=== PATIENT | male | born 1980 | race Caucasian/White ===

== ENCOUNTER → 2020-11-30 | Outpatient (CLI) | payer BC ==
--- NOTE | 2020-11-30 09:11 | US ---
EXAMINATION TYPE: US liver DATE OF EXAM: 11/30/2020 COMPARISON: NONE CLINICAL HISTORY: 40-year-old male R74.01 Elevated liver enzymes. No pain. Abnormal labs TECHNIQUE: Multiple sonographic images of the right upper quadrant are obtained. FINDINGS: EXAM MEASUREMENTS: Liver Length: 15.9 cm Gallbladder Wall: 0.2 cm Right Kidney: 11.1 x 5.8 x 5.7 cm Pancreas: Obscured by bowel gas Liver: Scanned through ribs due to overlying bowel gas. Limited intercostal views shows marked incre ased echogenicity. Gallbladder: wnl Evidence for sonographic Asencio's sign: neg CBD: Obscured by overlying bowel gas, unable to assess Right Kidney: No hydronephrosis. IMPRESSION: 1. Limited intercostal views of the liver show moderate to severe hepatic steatosis. Correlate with L FTs, liver profile, and patient risk factors. 2. No gallstones or imaging findings of acute cholecystitis. 3. Both bile duct and pancreas are obscured by bowel gas and could not be assessed.
== END | disposition home or self-care (01) ==
LOC: RADUSWWP 07:05
PROVIDERS: ATTEND Family Medicine
DX: K76.0 Fatty (change of) liver, not elsewhere classified (principal)
CPT/HCPCS: 76705

== ENCOUNTER → 2023-07-10 | Outpatient (CLI) | payer BC ==
--- NOTE | 2023-07-11 12:52 | US ---
EXAMINATION TYPE: US groin LT DATE OF EXAM: 07/10/2023 COMPARISON: NONE CLINICAL INDICATION: Male, 43 years old with history of R10.9 abd pain; Left groin pain extending to scrotum. TECHNIQUE: Targeted ultrasound along the left inguinal region. FINDINGS: Train Control Technician notes: Left groin scanned. Possible bowel seen within inguinal canal. Valsal va performed with movement visualized. IMPRESSION: Movement noted along the left inguinal region with Valsalva. Correlate for underlying inguinal hernia . If indicated, CT without and with Valsalva may be helpful to confirm.
--- NOTE | 2023-07-11 12:54 | US ---
EXAMINATION TYPE: US groin RT DATE OF EXAM: 07/10/2023 COMPARISON: NONE CLINICAL INDICATION: Male, 43 years old with history of R10.9 unspec abd pain; Hx right inguinal fareed ia with repair. No symptoms. TECHNIQUE: Targeted ultrasound right inguinal region. FINDINGS: Tubular Riveter notes: Right groin scanned. Echogenic area seen with shadowing at inguinal ca nal = 1.3 cm IMPRESSION: A 1.3 cm focus of shadowing at the right inguinal region probably corresponds to prior surgery. No ab normal movement of tissue or evident bulging to clearly indicate an inguinal hernia on the provided i mages.
--- NOTE | 2023-07-11 12:55 | US ---
EXAMINATION TYPE: US scrotum with doppler. TECHNIQUE: Grayscale and color Doppler Duplex imaging performed of the scrotum. DATE OF EXAM: 07/10/2023 COMPARISON: NONE CLINICAL INDICATION: Male, 43 years old with history of R10.9 UNSPECIFIED ABDOMINAL PAIN; Left inguin al tugging into scrotum EXAM MEASUREMENTS: TESTICLES: Right Testicle: 4.3 x 3.9 x 2.5 cm Left Testicle: 4.6 x 3.5 x 2.6 cm Doppler performed to assess for testicular vascularity; good bilateral color flow and waveforms are s een. There is no evidence of testicular torsion. EPIDIDYMIS HEAD: Right Epididymis: 0.7 x 0.9 x 0.6 cm Left Epididymis: 0.7 x 1.1 x 0.9 cm with an epididymal head cyst measuring 4 x 3 x 3 mm. Presence of hydroceles: no Presence of varicoceles: no IMPRESSION: 1. No sonographic evidence for testicular torsion or epididymoorchitis. 2. Tiny 4 mm left epididymal head cyst incidentally noted. 3. No hydrocele or varicocele.
== END | disposition home or self-care (01) ==
LOC: RADUSWWP 16:15
PROVIDERS: ATTEND Family Medicine
DX: N50.3 Cyst of epididymis (principal); R10.9 Unspecified abdominal pain
CPT/HCPCS: 76870; 93975